=== PATIENT | female | born 2000 | race African-American/Black ===

== ENCOUNTER 2018-11-15 12:08 | Emergency (ER) | payer MEDICAID ==
[~2018-11-15] VITALS: Ht 160 cm; Wt 75.0 kg
[2018-11-15] MEDS ORDERED: DEXAMETHASONE 10 MG/ML VIAL IM ONE (14:45)
[2018-11-15] MEDS ORDERED: ACETAMINOPHEN 325MG TABLET PO ONE (14:45)
[2018-11-15 15:29] VITALS: BP 115/69
== END 2018-11-15 15:14 | disposition home or self-care (01) ==
LOC: ER 12:08
DX: J02.9 Acute pharyngitis, unspecified (principal)
CPT/HCPCS: 81025; 96372; 99283; J1100